=== PATIENT | male | born 1980 | race Two or more races ===

== ENCOUNTER 2019-05-03 22:28 | Emergency (ER) | payer OTHER ==
[~2019-05-03] VITALS: Ht 167.6 cm; Wt 72.6 kg
[2019-05-03 22:41] VITALS: BP 144/98
--- NOTE | 2019-05-03 22:41 | NUR ---
ED Nurse Note: pt walked in to ED with right forearm laceration. pt stated he got cut with a can by accident when he was at work. pt is alert x4.
--- NOTE | 2019-05-03 22:43 | Emergency Room Report ---
History of Present Illness General Chief Complaint: Laceration Source: Patient Present Illness HPI Disclaimer: Please note that this report is being documented using [employer] technology. This can lead to erroneous entry secondary to incorrect interpretation by the dictating instrument. HPI: 38-year-old otherwise a female with no medical history presents for evaluation of a laceration to the right forearm. Patient is right-hand dominant. 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 While throwing it into the dumpster there was a aluminum Cam that cut his forearm. Achieved hemostasis with pressure. The wound is superficial. Denied any contaminants or debris in the wound. He did not yet washed it out. Does not recall last tetanus. No significant pain reported. No other injuries. Denies loss of strength, injury to the joints, numbness or tingling. PMH: Denies PSH: Denies Allergies: Penicillin Social Hx: Denies Allergies: Coded Allergies: No Known Allergies (Unverified , 05/03/19) Nursing Documentation-PMH Past Medical History: No Stated History Review of Systems All Other Systems: negative except mentioned in HPI Physical Exam Vital Signs Date Time Temp Pulse Resp B/P (MAP) Pulse Ox O2 Delivery O2 Flow Rate FiO2 05/03/19 22:32 97.9 77 16 161/112 (128) 96 Room Air General: Awake and alert, no acute distress HEENT: NC/AT. EOMI. Resp: Normal work of breathing Skin: I 3 cm superficial facial laceration over the ulnar aspect of the mid right forearm. Hemostatic. No debris noted. MSK: Normal tone and bulk. Moving all extremities. No obvious deformity. Neuro: Awake and alert. Mentating appropriately Procedures Laceration/Wound Repair Laceration/Wound Repair : Consent: Verbal Wound Location: upper extremity Wound's Depth, Shape: superficial, linear Wound Explored: clean Betadine Prep?: Yes Wound Debrided: None Wound Repaired With: sutures Suture Size/Type: 4:0, proline Number of Sutures: 6 Layer Closure?: No Patient Tolerated: Well Complications: None Medical Decision Making Diagnostic Impression: Primary Impression: Arm laceration ER Course 38-year-old male presents for a superficial laceration over the right forearm sustained while at work. Wound was well approximated with 6 simple interrupted 4-0 Prolene sutures after significant irrigation and washout. Tetanus was updated. Workers comp paperwork was filled out. The patient can return to full duties tomorrow. Discussed reasons to return to the emergency department need for suture removal in 10 to 14 days. He will follow with 1 of the clinics or return to the emergency department. Discussed reasons to return to the ER. He understands and agrees with this treatment plan was discharged home. Last Vital Signs Date Time Temp Pulse Resp B/P (MAP) Pulse Ox O2 Delivery O2 Flow Rate FiO2 05/03/19 22:32 97.9 77 16 161/112 (128) 96 Room Air Disposition: HOME, SELF-CARE Condition: Improved Mert Dunbar MD May 03, 2019 22:43
[2019-05-03] MEDS ORDERED: Tetanus/Diptheria/Pertussis IM ONE (22:45)
[2019-05-03 23:05] VITALS: BP 148/90
--- NOTE | 2019-05-03 23:05 | NUR ---
ER DISCHARGE NOTE: Patient is cleared to be discharged per ERMD, pt is aox4, on room air, with stable vital signs. pt was given dc instructions, pt was able to verbalize understanding, pt id band removed without complications. pt is able to ambulate with steady gait. pt took all belongings.
== END 2019-05-03 23:05 | disposition home or self-care (01) ==
LOC: EMR 22:45
DX: S51.811A Laceration without foreign body of right forearm, initial encounter (principal); Z23 Encounter for immunization; Z88.0 Allergy status to penicillin; W26.8XXA Contact with other sharp object(s), not elsewhere classified, initial encounter; Y93.E9 Activity, other interior property and clothing maintenance; Y92.511 Restaurant or cafe as the place of occurrence of the external cause; Y99.0 Civilian activity done for income or pay
CPT/HCPCS: 90471; 90715; 99282